=== PATIENT | male | born 1955 | race Caucasian/White ===

== ENCOUNTER 2019-02-25 15:42 | Emergency (ER) | payer OTHER ==
[~2019-02-25] VITALS: Ht 175.3 cm; Wt 77.1 kg
[2019-02-25 15:51] VITALS: BP 150/74
[2019-02-25] MEDS ORDERED: LEVETIRACETAM (250 MG) 250 MG TABLET PO ONE ×2 (16:50→17:00)
== END 2019-02-25 17:11 | disposition home or self-care (01) ==
LOC: ER 15:52
DX: G40.909 Epilepsy, unspecified, not intractable, without status epilepticus (principal); Z60.2 Problems related to living alone; Z98.890 Other specified postprocedural states

== ENCOUNTER 2023-01-04 14:25 | Inpatient (IN) | payer MEDICARE, OTHER ==
[~2023-01-04] VITALS: Ht 162.6 cm; Wt 68.9 kg
--- NOTE | 2023-01-04 14:25 | NUR ---
BIBRA 78 FOR 8/10 CHEST PAIN RADIATING TO RIGHT ARM WITH NAUSEA. TOOK 0.4 MG NITRO SL EN ROUTE TO ER. CURRENTLY WITH NO PAIN OR NAUSEA. NO EPISODES OF CHEST PAIN IN PAST PER PATIENT. A/O X 3, ABLE TO MAKE NEEDS KNOWN, TOLERATING WELL ON ROOM AIR.
[2023-01-04] MEDS ORDERED: IV NS 0.9% 1,000 ML IV ONE (14:30)
--- NOTE | 2023-01-04 15:20 | NUR ---
MOVE SHEET SUBMITTED.
[2023-01-04 15:24] LABS: BASOPHILS % (AUTO) 0.4 % (0.0-2.0); EOSINOPHILS % (AUTO) 3.6 % (0.0-6.0); HEMATOCRIT 32 % (39-51); HEMOGLOBIN 10.1 g/dL (13.5-17.5); LYMPHOCYTES # (AUTO) 0.6 K/uL (0.8-4.8); LYMPHOCYTES % (AUTO) 8.3 % (20.0-44.0); MEAN CORPUSCULAR HGB CONC 31 g/dl (31.0-36.0); MEAN CORPUSCULAR VOLUME 91 fL (80-96); MONOCYTES # (AUTO) 0.4 K/uL (0.1-1.30); MONOCYTES % (AUTO) 6.3 % (2.0-12.0); NEUTROPHILS # (AUTO) 5.7 K/uL (1.8-8.9); NEUTROPHILS % (AUTO) 81.4 % (43.0-81.0); PLATELET COUNT (AUTO) 226 K/uL (150-450); RED BLOOD CELL COUNT(AUTO) 3.53 MIL/uL (4.5-6.0)
[2023-01-04] MEDS ORDERED: LEVETIRACETAM (500MG) 1,000 MG in IV NS 0.9% 100 ML IV SCH (15:30)
--- NOTE | 2023-01-04 15:30 | NUR ---
COVID SWAB OBTAINED
[2023-01-04 15:39] LABS: CALCIUM, SERUM 9.8 mg/dL (8.5-10.1); CARBON DIOXIDE 31 mmol/L (21-32); CHLORIDE 102 mmol/L (98-107); CREATININE 1.9 mg/dL (0.6-1.3); GLUCOSE 140 mg/dL (74-106); POTASSIUM 4.5 mmol/L (3.5-5.1); SODIUM SERUM 136 mmol/L (136-145); UREA NITROGEN, BLOOD 28 mg/dL (7-18)
[2023-01-04 15:51] LABS: ALANINE AMINOTRANSFERASE 50 U/L (12-78); ALBUMIN 3.4 g/dL (3.4-5.0); ALKALINE PHOSPHATASE 386 U/L (46-116); ASPARTATE AMINOTRANSFERASE 72 U/L (15-37); BILIRUBIN,DIRECT 0.3 mg/dL (0.0-0.2); BILIRUBIN,TOTAL 0.6 mg/dL (0.2-1.0); TOTAL PROTEIN, SERUM 8.2 g/dL (6.4-8.2)
[2023-01-04] MEDS ORDERED: MAGNESIUM HYDROXIDE 30 ML UDC PO PRN (17:00)
[2023-01-04] MEDS ORDERED: MAG HYDROX/AL HYDROX/SIMETH 30 ML UDC PO PRN (17:00)
[2023-01-04] MEDS ORDERED: ONDANSETRON HCL/PF 4 MG/2 ML VIAL IVP PRN (17:00)
[2023-01-04] MEDS ORDERED: Z GUARD REMEDY 4 OZ OINT TP PRN (17:00)
[2023-01-04] MEDS ORDERED: ZOLPIDEM TARTRATE 5 MG TABLET PO PRN (17:00)
[2023-01-04] MEDS ORDERED: IV NS 0.9% 1,000 ML IV PRN (17:00)
--- NOTE | 2023-01-04 17:55 | NUR ---
REPORT GIVEN TO KO BETANCOURT
--- NOTE | 2023-01-04 18:18 | NUR ---
PATIENT WITH ONE EPISODE OF VOMITING YELLOW PHLEGM, NOTED WITH FEVER OF 101.3, MD MADE AWARE
--- NOTE | 2023-01-04 18:20 | NUR ---
PATIENT OFF OF UNIT FOR PROCEDURE, WILL MOVE UP TO 313-2 WHEN COMPLETED
[2023-01-04] MEDS ORDERED: ACETAMINOPHEN 325 MG TABLET PO STA (18:21)
--- NOTE | 2023-01-04 19:43 | NUR ---
PATIENT MOVED UP TO 313-2, ALL CARE ENDORSED TO KO GALVIN
--- NOTE | 2023-01-04 19:45 | NUR ---
SLEEVE IRONERANCILLARY SERVICES MANAGER THERAPY NOTES REPORT RECEIVED FROM ASIA. PATIENT TRANSFERRED FROM ER VIA GURNEY, WITH NO SIGNS OF DISTRESS. ORIENTED PATIENT TO ROOM SET UP AND EDUCATED PARIANAT Addendum: 01/05/23 at 0152 by GLENIS GAR RN ORIENTED PATIENT TO ROOM SET UP AND EDUCATED PATIENT TO ROOM SET UP AND EDUCATED PATIENT ON THE USE OF CALL LIGHT. VS TAKEN AND RECORDED. SKIN ASSESSMENT DONE, SKIN IS INTACT. ALL BELONGING CHECKED AND BELONGIN LIST SIGNED. PATIENT REFUSED TO BE CHANGED AT THIS TIME. WILL CONTINUE TO MONITOR AND WILL CARRY OUT ACTIVE MD ORDERS.
[2023-01-04] MEDS: ENOXAPARIN SODIUM 40 MG/0.4 ML DISP.SYRIN SQ SCH (21:54)
[2023-01-05] VITALS: BP 109/55
[2023-01-05 05:00] VITALS: BP 108/60
[2023-01-05] MEDS: MORPHINE SULFATE INJ 2 MG/ML DISP.SYRIN IV PRN ×3 (05:41→20:59)
[2023-01-05 05:55] LABS: BASOPHILS % (AUTO) 0.4 % (0.0-2.0); HEMATOCRIT 31 % (39-51); LYMPHOCYTES # (AUTO) 0.8 K/uL (0.8-4.8); LYMPHOCYTES % (AUTO) 11.2 % (20.0-44.0); MEAN CORPUSCULAR HGB CONC 32 g/dl (31.0-36.0); MEAN CORPUSCULAR VOLUME 90 fL (80-96); MONOCYTES # (AUTO) 0.7 K/uL (0.1-1.30); MONOCYTES % (AUTO) 8.9 % (2.0-12.0); NEUTROPHILS % (AUTO) 78.5 % (43.0-81.0); PLATELET COUNT (AUTO) 204 K/uL (150-450); RED BLOOD CELL COUNT(AUTO) 3.42 MIL/uL (4.5-6.0); WHITE BLOOD COUNT (AUTO) 7.6 K/uL (4.3-11.0)
[2023-01-05 06:15] LABS: CREATININE 1.9 mg/dL (0.6-1.3); MAGNESIUM 1.7 mg/dL (1.8-2.4); PHOSPHORUS 4.3 mg/dL (2.5-4.9); POTASSIUM 4.3 mmol/L (3.5-5.1)
--- NOTE | 2023-01-05 07:02 | NUR ---
NARCOTICS INVESTIGATOR CLOSING NOTES PATIENT IN RESTING IN BED. A/O X 4. ON ROOM AIR, BREATHING EVEN AND UNLABORED, NO DISTRESS OR SOB NOTED AT THIS TIME. IV ACCESS LAC #20G RUNNING NS @ 75ML/HR, INFUSING WELL. WITH EXTERNAL TWISTER DOFFER WITH CURRENT READING OF SR WITH 1ST DEGREE BLOCK. ALL NEEDS ATTENDED. SAFETY MEASURES MAINTAINED DURING SHIFT. WILL ENDORSE TO THE NEXT SHIFT.
--- NOTE | 2023-01-05 07:50 | NUR ---
RN OPENING NOTE RECEIVED PATIENT IN BED AWAKE. A/O X4. ABLE TO MAKE NEEDS KNOWN. ON ROOM AIR TOLERATING WELL. NO SOB, BREATHING EVENLY AND UNLABORED. IV ACCESS ON LEFT AC #20 WITH NS RUNNING AT 75ML/HR, PATENT, INTACT, AND FLUSHES WELL. NO COMPLAINS OF PAIN OR DISCOMFORT AT THIS TIME. SAFETY MEASURES MAINTAINED: BED LOCKED AND IN LOWEST POSITION, HOB SLIGHTLY ELEVATED, SIDE RAILS UP X2, CALL LIGHT AND BEDSIDE TABLE WITHIN PATIENT REACH. WILL CONTINUE TO MONITOR PATIENT.
[2023-01-05 08:29] VITALS: BP 96/55
[2023-01-05] MEDS: ASPIRIN 81 MG TAB.CHEW PO SCH (08:40)
--- NOTE | 2023-01-05 09:00 | NUR ---
RN NOTE 3 HOME MEDS BROUGHT TO PHARMACY.
[2023-01-05] MEDS ORDERED: CLOP75TA15 PO (11:09)
[2023-01-05] MEDS ORDERED: ASCO-352 PO (11:09)
[2023-01-05] MEDS ORDERED: EPOE1VIA15 SQ (11:09)
[2023-01-05] MEDS ORDERED: OMEP40CA21 PO (11:09)
[2023-01-05] MEDS ORDERED: PYRI100T22 PO (11:09)
[2023-01-05] MEDS ORDERED: ERGO500093 PO (11:09)
[2023-01-05] MEDS ORDERED: LEVE500T19 PO (11:09)
[2023-01-05 11:57] VITALS: BP 101/48
[2023-01-05] MEDS: IV NS 0.9% 1,000 ML IV PRN (12:35)
[2023-01-05] MEDS ORDERED: MAGNESIUM OXIDE 400 MG TABLET PO ONE (13:00)
[2023-01-05 13:06] LABS: THYROID STIMULATING HORMONE 1.134 uIU/mL (0.358-3.74)
--- NOTE | 2023-01-05 14:15 | NUR ---
RN NOTE PATIENT COMPLAINED OF CHEST PAIN AND RATE IT 9/10. MORPHINE 2MG GIVEN. WILL CONTINUE TO MONITOR PATIENT.
[2023-01-05 14:51] LABS: BILIRUBIN,URINE NEGATIVE (NEGATIVE); COLOR,URINE YELLOW (YELLOW); LEUKOCYTE ESTERASE ,URINE NEGATIVE (NEGATIVE); NITRITE, URINE NEGATIVE (NEGATIVE); PH,URINE 5.5 (5.0-8.0); PROTEIN,URINE NEGATIVE (NEGATIVE); UGLUCOSE NEGATIVE (NEGATIVE); UROBILINOGEN,URINE 0.2 EU/dL (0.2)
[2023-01-05 16:16] VITALS: BP 96/48
[2023-01-05] MEDS: LEVETIRACETAM (250 MG) 250 MG TABLET PO SCH (16:37)
--- NOTE | 2023-01-05 18:19 | NUR ---
WEIGHT ENGINEER CLOSING NOTE PATIENT IN BED AWAKE. A/O X4. ABLE TO MAKE NEEDS KNOWN. ON ROOM AIR TOLERATING WELL. NO SOB, BREATHING EVENLY AND UNLABORED. IV ACCESS ON LEFT AC #20 WITH NS RUNNING AT 75ML/HR, PATENT, INTACT, AND FLUSHES WELL. NO COMPLAINS OF PAIN OR DISCOMFORT AT THIS TIME. SAFETY MEASURES MAINTAINED: BED LOCKED AND IN LOWEST POSITION, HOB SLIGHTLY ELEVATED, SIDE RAILS UP X2, CALL LIGHT AND BEDSIDE TABLE WITHIN PATIENT REACH. WILL ENDORSE TO EDUCATIONAL PSYCHOLOGY TEACHER NURSE FOR MICHAEL.
[2023-01-05] MEDS ORDERED: NITROGLYCERIN 0.4 MG/TAB BOTTLE SL PRN (18:30)
[2023-01-05] MEDS: METOPROLOL TARTRATE 25 MG TABLET PO SCH ×2 (18:33→21:14)
--- NOTE | 2023-01-05 19:30 | NUR ---
noc rn opening note received patient in bed, a/ox4, no s.s of apparent distress on 2lpm on o2 via nc. denies pain at this time, LAC #20g running NS @75mls/hr. safety in bed, bed in lowest, locked position, call light within reach, side rails upX4, seizure precaution in place. Patient encouraged to use the call light. will continue with patient's plan of care.
[2023-01-05 20:00] VITALS: BP 104/55
--- NOTE | 2023-01-05 21:02 | NUR ---
noc rn note- pain management Patient c/o 11/28 pain on his left chest, but would rather get Morphine than Nitro because per patient "Morphine works for me just fine and what if Nitro does not work?" Patient education done. Given Morphine 2mg as ordered PRN and encouraged to have his O2 on.
[2023-01-05] MEDS: ENOXAPARIN SODIUM 40 MG/0.4 ML DISP.SYRIN SQ SCH (21:13)
[2023-01-05] MEDS: ATORVASTATIN 40 MG TABLET PO SCH (21:14)
--- NOTE | 2023-01-05 21:15 | NUR ---
noc rn note Patient given Maalox at this per charge nurse, Juliette patient might be exhibiting reflux hence the pain. Will monitor.
--- NOTE | 2023-01-05 21:40 | NUR ---
noc rn note Patient reports X1 emesis, refused Zosyn. Per patient and to quote "no more medication". will monitor.
--- NOTE | 2023-01-05 21:40 | NUR ---
noc rn pain reassessment Patient verbalized pain relief after morphine but did report having X1 emesis, will continue to monitor.
[2023-01-05] MEDS: ACETAMINOPHEN 325 MG TABLET PO PRN (23:42)
--- NOTE | 2023-01-05 23:44 | NUR ---
noc rn note Patient given Tylenol 650mg as ordered PRN for temp 100.3. Cooling measure initiated. Patient denies any pain nor nausea at this time. Will continue to monitor.
[2023-01-06] VITALS: BP 94/48
[2023-01-06] MEDS: IV NS 0.9% 1,000 ML IV PRN ×2 (03:14→17:35)
[2023-01-06 05:17] VITALS: BP 114/50
[2023-01-06] MEDS: MORPHINE SULFATE INJ 2 MG/ML DISP.SYRIN IV PRN ×2 (05:18→18:20)
--- NOTE | 2023-01-06 05:19 | NUR ---
noc rn note- pain management Patient c/o angina at this time, non-radiating. continue to refuse Nitro. Patient education was done regarding Nitro and patient refused. Would rather get Morphine for angina. Refused Zofran as well stating that the Nausea was from taking the Maalox earlier. Given Morphine as ordered PRN for chest pain. will re-assess.
--- NOTE | 2023-01-06 05:58 | NUR ---
noc rn note Patient stated relief of angina. "0" per patient.
[2023-01-06 06:07] LABS: BASOPHILS % (AUTO) 0.2 % (0.0-2.0); EOSINOPHILS % (AUTO) 1.5 % (0.0-6.0); HEMATOCRIT 29 % (39-51); LYMPHOCYTES # (AUTO) 0.6 K/uL (0.8-4.8); LYMPHOCYTES % (AUTO) 11.2 % (20.0-44.0); MEAN CORPUSCULAR HGB CONC 32 g/dl (31.0-36.0); MEAN CORPUSCULAR VOLUME 91 fL (80-96); MONOCYTES # (AUTO) 0.7 K/uL (0.1-1.30); MONOCYTES % (AUTO) 11.6 % (2.0-12.0); NEUTROPHILS # (AUTO) 4.4 K/uL (1.8-8.9); NEUTROPHILS % (AUTO) 75.5 % (43.0-81.0); PLATELET COUNT (AUTO) 206 K/uL (150-450); RED BLOOD CELL COUNT(AUTO) 3.14 MIL/uL (4.5-6.0); WHITE BLOOD COUNT (AUTO) 5.8 K/uL (4.3-11.0)
[2023-01-06 06:20] LABS: CREATININE 1.6 mg/dL (0.6-1.3); POTASSIUM 3.8 mmol/L (3.5-5.1)
--- NOTE | 2023-01-06 07:21 | NUR ---
noc rn closing note patient in bed with eyes closed, easy to arouse. no s/s of apparent distress in 2lpm of o2 via nc. denies pain at this time. reading sr with PVC's this am. IV ns running @90mls/hr at this time. all needs attended. all scheduled medications administered. safety kept in place throughout shift. endorsed to sIa, morning shift rn for continuity of patient care.
--- NOTE | 2023-01-06 07:25 | NUR ---
DAMAGED FREIGHT INSPECTOR OPENING NOTES RECEIVED PATIENT IN BED, ASLEEP BUT EASY TO AROUSE. A/O X, ABLE TO MAKE NEEDS KNOWN. NO SIGNS OF ACUTE DISTRESS NOTED. ON ROOM AIR, TOLERATING WELL. NO SOB NOTED, PATIENT IS BREATHING EVEN AND UNLABORED. ON TELE MONITORING READING SR; HR-62BPM. PATIENT IS NOTED WITH IV ACCESS ON LAC #20G WITH NS RUNNING @90ML/HR. DENIES ANY PAIN AT THIS TIME. SAFETY MEASURES IN PLACE. BED IN LOW AND LOCKED POSITION; SIDE RAILS UP X2; CALL LIGHT AND TABLE WITHIN EASY REACH. WILL CONTINUE WITH PLAN OF CARE.
[2023-01-06 08:17] VITALS: BP 108/56
[2023-01-06] MEDS: CLOPIDOGREL BISULFATE 75 MG TABLET PO SCH ×2 (09:00→10:35)
[2023-01-06] MEDS: METOPROLOL TARTRATE 25 MG TABLET PO SCH ×2 (09:00→21:30)
[2023-01-06] MEDS: ASCORBIC ACID 500 MG TABLET PO SCH ×2 (09:00→10:35)
[2023-01-06] MEDS ORDERED: LEVETIRACETAM (250 MG) 250 MG TABLET PO SCH (09:00)
[2023-01-06] MEDS: ASPIRIN 81 MG TAB.CHEW PO SCH (10:34)
[2023-01-06] MEDS: PYRIDOXINE HCL 50 MG TABLET PO SCH (10:35)
[2023-01-06] MEDS: LEVETIRACETAM (250 MG) 250 MG TABLET PO SCH ×3 (10:35→18:49)
[2023-01-06] MEDS: PANTOPRAZOLE 40 MG TABLET.DR PO SCH (10:35)
[2023-01-06 16:00] VITALS: BP 105/56
--- NOTE | 2023-01-06 18:15 | NUR ---
FERTILIZER SUPERVISOR PATIENT COMPLAINED OF CHEST PAIN WITH PAIN SCALE OF 8/10, NON RADIATING. PATIENT REFUSED NITRO SL AND MENTIONED THAT HE PREFERS MORPHINE. HEALTH TEACHING DONE AND WILL CONTINUE TO MONITOR THE PATIENT.
--- NOTE | 2023-01-06 18:20 | NUR ---
SHIP YARD ELECTRICAL PERSON MORPHINE 2MG IV GIVEN TO PATIENT PRN-FOR CHEST PAIN. WILL CONTINUE TO MONITOR AND REASSESS THE PATIENT.
--- NOTE | 2023-01-06 18:50 | NUR ---
CAPTAIN WAITER PATIENT WAS REASSESSED AND STATED THAT PAIN HAS SUBSIDED TO ZERO. WILL CONTINUE TO MONITOR THE PATIENT.
--- NOTE | 2023-01-06 19:41 | NUR ---
REACTOR OPERATOR CLOSING NOTES PATIENT IN BED, AWAKE AND WATCHING TV. A/O X, ABLE TO MAKE NEEDS KNOWN. NO SIGNS OF ACUTE DISTRESS NOTED. ON O2 INHALATION VIA NC AT 2LPM, TOLERATED WELL. NO SOB NOTED, PATIENT IS BREATHING EVEN AND UNLABORED. ON TELE MONITORING READING SR; HR-69BPM. PATIENT IS NOTED WITH IV ACCESS ON LAC #20G WITH NS RUNNING @90ML/HR. DENIES ANY PAIN AT THIS TIME. ALL DUE MEDS GIVEN. ALL NEEDS ATTENDED. SAFETY MEASURES IN PLACED. BED IN LOW AND LOCKED POSITION; SIDE RAILS UP X2; CALL LIGHT AND TABLE WITHIN EASY REACH. WILL ENDORSE TO CLIPPER AND TURNER NURSE FOR CONTINUITY OF CARE.
--- NOTE | 2023-01-06 19:45 | NUR ---
LEGAL FINANCIAL SPECIALIST OPENING NOTE RECEIVED PATIENT IN BED; AWAKE, ALERT AND ORIENTED X 4. ON ROOM AIR; TOLERATING WELL. BREATHING EVEN AND NONLABORED. DENIES ANY CHEST PAIN OR DISCOMFORT AT THIS TIME. ON TELE MONITORING WHICH READS SR HR-69 BPM. ABLE TO MAKE NEEDS KNOWN. WITH IV ACCESS ON LEFT AC 20g RUNNING WITH NS 1L INFUSING @ 90 ML/HR; FLUSHES WELL. ABLE TO MAKE NEEDS KNOWN. SAFETY PRECAUTIONS IMPLEMENTED: CALL LIGHT AND TABLE WITHIN REACH, SIDE RAILS UP X 2, BED IN LOWEST LOCKED POSITION. WILL CONTINUE TO MONITOR THROUGHOUT SHIFT.
[2023-01-06 20:00] VITALS: BP 114/73
[2023-01-06] MEDS: ATORVASTATIN 40 MG TABLET PO SCH (21:30)
[2023-01-06] MEDS: ENOXAPARIN SODIUM 40 MG/0.4 ML DISP.SYRIN SQ SCH (21:47)
[2023-01-06] MEDS: ACETAMINOPHEN 325 MG TABLET PO PRN (23:16)
[2023-01-07] VITALS: BP 124/57
[2023-01-07] MEDS: MORPHINE SULFATE INJ 2 MG/ML DISP.SYRIN IV PRN ×2 (00:55→10:24)
--- NOTE | 2023-01-07 00:55 | NUR ---
RN NOTE PATIENT C/O ABDOMINAL AND BACK PAIN 8/10 PAIN SCALE. PRN MORPHINE 2 MG GIVEN IV ORDERED. WILL CONTINUE TO MONITOR AND REASSESS PATIENT.
[2023-01-07 04:00] VITALS: BP 127/60
[2023-01-07] MEDS: IV NS 0.9% 1,000 ML IV PRN (05:29)
[2023-01-07 06:14] LABS: BASOPHILS % (AUTO) 0.7 % (0.0-2.0); EOSINOPHILS % (AUTO) 5.1 % (0.0-6.0); HEMATOCRIT 28 % (39-51); HEMOGLOBIN 8.8 g/dL (13.5-17.5); LYMPHOCYTES # (AUTO) 0.7 K/uL (0.8-4.8); LYMPHOCYTES % (AUTO) 19.3 % (20.0-44.0); MEAN CORPUSCULAR HGB CONC 31 g/dl (31.0-36.0); MEAN CORPUSCULAR VOLUME 90 fL (80-96); MONOCYTES # (AUTO) 0.4 K/uL (0.1-1.30); MONOCYTES % (AUTO) 12.3 % (2.0-12.0); NEUTROPHILS # (AUTO) 2.2 K/uL (1.8-8.9); NEUTROPHILS % (AUTO) 62.6 % (43.0-81.0); PLATELET COUNT (AUTO) 190 K/uL (150-450); RED BLOOD CELL COUNT(AUTO) 3.14 MIL/uL (4.5-6.0); WHITE BLOOD COUNT (AUTO) 3.6 K/uL (4.3-11.0)
[2023-01-07 06:20] LABS: CALCIUM, SERUM 8.7 mg/dL (8.5-10.1); CREATININE 1.4 mg/dL (0.6-1.3); POTASSIUM 3.8 mmol/L (3.5-5.1)
[2023-01-07 07:00] VITALS: BP 137/68
--- NOTE | 2023-01-07 07:25 | NUR ---
SHOE ASSOCIATE CLOSING NOTE PATIENT IN BED; AWAKE, A/O X 4. STABLE ON ROOM AIR. IN NO ACUTE DISTRESS. NO C/O CHEST PAIN OR DISCOMFORT AT THIS TIME. ON TELE MONITORING WHICH READS SR HR-70 BPM. ALL NEEDS ATTENDED. WITH IV ACCESS ON LEFT AC 20g RUNNING WITH NS 1L INFUSING @ 90 ML/HR; FLUSHES WELL. SAFETY PRECAUTIONS IN PLACE: CALL LIGHT AND TABLE WITHIN REACH, SIDE RAILS UP X 2, BED IN LOWEST LOCKED POSITION. ENDORSED TO MORNING SHIFT FOR MICHAEL.
--- NOTE | 2023-01-07 08:14 | NUR ---
RN OPENING NOTE RECEIVED PATIENT IN BED, AO X 4, CONFUSED. ABLE TO RESPONDS ALL PHYSICAL STIMULI. RESPIRATORY EVEN AND UNLABORED IN ROOM AIR, AND OXYGEN 2Ls NEEDED. IN NO ACUTE RESPIRATORY DISTRESS OBSERVED. SKIN IS WARM TO TOUCH, KEEP CLEAN/DRY. KEPT ELEVATED HOB FOR ASPIRATION PRECAUTION AND ENSURE AIRWAY, ALSO LOWEST BED POSITIONED. BED ALARM IS ON AT ALL TIMES FOR SAFETY. CALL LIGHT WITHIN REACH, WILL CONTINUE TO MONITOR.
[2023-01-07] MEDS: LEVETIRACETAM (250 MG) 250 MG TABLET PO SCH (08:49)
[2023-01-07] MEDS: ASCORBIC ACID 500 MG TABLET PO SCH (08:49)
[2023-01-07] MEDS: PYRIDOXINE HCL 50 MG TABLET PO SCH (08:49)
[2023-01-07] MEDS: ASPIRIN 81 MG TAB.CHEW PO SCH (08:49)
[2023-01-07] MEDS: PANTOPRAZOLE 40 MG TABLET.DR PO SCH (08:49)
[2023-01-07] MEDS: CLOPIDOGREL BISULFATE 75 MG TABLET PO SCH (08:49)
[2023-01-07] MEDS ORDERED: METOPROLOL TARTRATE 25 MG TABLET PO SCH (09:00)
--- NOTE | 2023-01-07 10:24 | NUR ---
PATIENT C/O CHEST PAIN, PAIN SCALE 3-4 OUT OF 10. PATIENT REFUSED NITROSTAT AND REQUESTED MORPHINE INSTEAD. WILL CONTINUE TO MONITOR.
[2023-01-07 12:00] VITALS: BP 132/59
[2023-01-07] MEDS ORDERED: SOD FERRIC GLUC 125 MG in IV NS 0.9% 100 ML IV SCH (14:00)
--- NOTE | 2023-01-07 15:30 | NUR ---
Patient SF: [phone]/ [phone] signed AMA and left facility. The patient understanding about the risks and consequences involved in leaving the hospital at this time the benefits of continued treatment and hospitalization, and the alternatives. Removed IV line before patient leave, informed MDs. Incident report is done.
[2023-01-09] MEDS ORDERED: ERGOCALCIFEROL (VITAMIN D 2) 50,000 UNIT CAPSULE PO SCH (09:00)
== END 2023-01-07 15:30 | disposition left against medical advice (07) | DRG 302 ==
LOC: ER 14:28 → TELE 18:01
PROVIDERS: ADMIT Nurse Practitioner Acute Care; ATTEND Nurse Practitioner Acute Care
DX: I25.110 Atherosclerotic heart disease of native coronary artery with unstable angina pectoris (principal); N17.0 Acute kidney failure with tubular necrosis; D63.8 Anemia in other chronic diseases classified elsewhere; G40.909 Epilepsy, unspecified, not intractable, without status epilepticus; I25.10 Atherosclerotic heart disease of native coronary artery without angina pectoris; Z92.21 Personal history of antineoplastic chemotherapy; I73.9 Peripheral vascular disease, unspecified; Z85.05 Personal history of malignant neoplasm of liver; Z86.711 Personal history of pulmonary embolism; Z95.1 Presence of aortocoronary bypass graft; E83.42 Hypomagnesemia; Z20.822 Contact with and (suspected) exposure to COVID-19; Z88.8 Allergy status to other drugs, medicaments and biological substances
CPT/HCPCS: 36415; 71045-TC; 76770-TC; 78582; 80048-TC; 80076-TC; 83540-TC; 83605-TC; 83735-TC; 83880; 84100-TC; 84300-TC; 84443-TC; 84484-TC; 85025-TC; 85378-TC; 86850-TC; 87040-TC; 87081-TC; 93307-TC; A4223; A9540; A9567; C9803; G0378; J1650; J1953; J2270; J2916; J7030